=== PATIENT | male | born 1955 | race Caucasian/White ===

== ENCOUNTER → 2019-07-09 | Outpatient (CLI) | payer MEDICARE, OTHER ==
[2019-07-09 14:17] LABS: U Amphetamine Screen Not Detected; U Barbituate Screen Not Detected; U Benzodiazapine Screen Not Detected; U Buprenorphine Screen Not Detected; U Cannabinoids Screen Not Detected; U Cocaine Screen Not Detected; U Methadone Screen Not Detected; U Methamphetamine Screen Not Detected; U Opiates Screen DETECTED; U Oxycodone Screen Not Detected
[2019-07-09 14:19] LABS: U Propoxyphene Screen Not Detected
== END | disposition home or self-care (01) ==
LOC: LAB 12:44 → LAB SHORT 12:44
PROVIDERS: Nurse Practitioner Family
DX: Z51.81 Encounter for therapeutic drug level monitoring (principal); Z79.891 Long term (current) use of opiate analgesic

== ENCOUNTER → 2020-05-07 | Outpatient (CLI) | payer MEDICARE | END | disposition home or self-care (01) | LOC: LAB EV 16:51 | DX: Z51.81 Encounter for therapeutic drug level monitoring (principal); Z79.899 Other long term (current) drug therapy | CPT/HCPCS: G0480 ==

== ENCOUNTER → 2021-01-14 | Outpatient (CLI) | payer MEDICARE | END | disposition home or self-care (01) | LOC: LAB 10:01 → LAB SHORT 10:01 | DX: N39.0 Urinary tract infection, site not specified (principal) | CPT/HCPCS: 87077; 87086; 87186 ==

== ENCOUNTER → 2021-02-23 | Outpatient (CLI) | payer MEDICARE ==
[2021-02-23 11:02] LABS: Source, Urine Clean Catch
[2021-02-23 13:05] LABS: Appearance, Urine Cloudy (Clear); Bilirubin, Urine Neg (Neg); Blood, Urine 4+ (Neg); Color, Urine Yellow (P-Yellow); Glucose Qualitative, Urine 4+ (Neg); Ketones, Urine 1+ (Neg); Leukocyte Esterase, Urine 3+ (Neg); Nitrite, Urine Neg (Neg); Protein, Urine Neg (Neg); Urobilinogen, Urine NORM (Normal)
[2021-02-23 13:42] LABS: White Blood Cells, Urine 50-100 /hpf (0-5)
[2021-02-23 13:43] LABS: Amorphous Mod (0-Heavy); Bacteria Mod /hpf; Squamous Epithelial Cells Few /hpf (Few)
== END | disposition home or self-care (01) ==
LOC: LAB 11:01 → LAB SHORT 11:01 → LAB FUT 02-22 10:55
PROVIDERS: Physician Assistant
DX: N39.0 Urinary tract infection, site not specified (principal)
CPT/HCPCS: 81001; 87077; 87086; 87186

== ENCOUNTER 2021-03-10 13:29 | Day surgery (SDC) | payer MEDICARE ==
[2021-03-10] MEDS ORDERED: ASPI325 PO (14:45)
[2021-03-10] MEDS ORDERED: CLOP75 PO (14:45)
[2021-03-10] MEDS ORDERED: COLESTID1 G1 PO (14:47)
[2021-03-10] MEDS ORDERED: LOSA50 PO (14:48)
[2021-03-10] MEDS ORDERED: VICODIN HP 10-1 EAC1 PO (14:48)
== END 2021-03-10 14:56 | disposition home or self-care (01) ==
LOC: ATC 13:29
DX: N39.0 Urinary tract infection, site not specified (principal); B96.20 Unspecified Escherichia coli [E. coli] as the cause of diseases classified elsewhere; I10 Essential (primary) hypertension; E10.9 Type 1 diabetes mellitus without complications; N20.0 Calculus of kidney; N41.9 Inflammatory disease of prostate, unspecified
CPT/HCPCS: 96365; J1335

== ENCOUNTER 2021-03-11 07:44 | Day surgery (SDC) | payer MEDICARE ==
[~2021-03-11 07:44] MED LIST: ASPI325 PO; CLOP75 PO; COLESTID1 G1 PO; LOSA50 PO; VICODIN HP 10-1 EAC1 PO
== END 2021-03-11 11:02 | disposition home or self-care (01) ==
LOC: ATC 07:44
DX: N39.0 Urinary tract infection, site not specified (principal)
CPT/HCPCS: 96365; J1335

== ENCOUNTER 2021-03-12 04:52 | Day surgery (SDC) | payer MEDICARE | END 2021-03-12 11:30 | disposition home or self-care (01) | LOC: ATC 04:52 | DX: N39.0 Urinary tract infection, site not specified (principal) | CPT/HCPCS: 96365; J1335 ==

== ENCOUNTER 2021-03-13 05:18 | Day surgery (SDC) | payer MEDICARE | END 2021-03-13 11:29 | disposition home or self-care (01) | LOC: ATC 05:18 | DX: N39.0 Urinary tract infection, site not specified (principal) | CPT/HCPCS: 96365; J1335 ==

== ENCOUNTER 2021-03-14 02:44 | Day surgery (SDC) | payer MEDICARE | END 2021-03-14 11:05 | disposition home or self-care (01) | LOC: ATC 02:44 | DX: N39.0 Urinary tract infection, site not specified (principal) | CPT/HCPCS: 96365; J1335 ==

== ENCOUNTER 2021-03-15 01:29 | Day surgery (SDC) | payer MEDICARE ==
--- NOTE | 2021-03-15 11:04 | NUR ---
PT CONCERNED ABOUT ANTIBIOTIC ENDING TOMORROW. STATES IN THE PAST HE NEEDS MORE TO END HIS INFECTION.
== END 2021-03-15 11:00 | disposition home or self-care (01) ==
LOC: ATC 01:29
DX: N39.0 Urinary tract infection, site not specified (principal)
CPT/HCPCS: 96365; J1335

== ENCOUNTER 2021-03-16 05:18 | Day surgery (SDC) | payer MEDICARE ==
--- NOTE | 2021-03-16 10:40 | NUR ---
CALLED DR'S OFFICE PT STATES HE FEELS THOUGH HIS UTI SYMPTOMS ARE STILL PRESENT. PT WAS CURIOUS IF WE SHOULD CONTINUE ABX OR SWITCH TO ANOTHER ABX. BET[employer], MEDICAL ASSEMBLER FOR [employer] [employer] TOOK THE MESSAGE AND WILL CALL THE PATIENT WITH THE PLAN AND WILL NOTIFY OUR DEPARTMENT WITH NEW ORDERS IF NEEDED.
== END 2021-03-16 10:50 | disposition home or self-care (01) ==
LOC: ATC 05:18
DX: N39.0 Urinary tract infection, site not specified (principal)
CPT/HCPCS: 96365; J1335